=== PATIENT | female | born 1950 | race Caucasian/White ===

== ENCOUNTER → 2024-10-13 09:53 | Outpatient (REF) | payer MEDICARE, BC, SELFPAY | LOC: HWWDC 09:53 | PROVIDERS: ATTENDING PHYSICIAN Internal Medicine | DX: Z78.0 Asymptomatic menopausal state (principal) | CPT/HCPCS: 77063; 77067; 77080 ==

== ENCOUNTER → 2025-06-11 07:39 | Outpatient (REF) | payer OTHER, SELFPAY | LOC: RCS 07:39 | PROVIDERS: ATTENDING PHYSICIAN Internal Medicine; OTHER PHYSICIAN Nuclear Medicine Nuclear Cardiology; REFERRING PHYSICIAN Internal Medicine Cardiovascular Disease | DX: R00.2 Palpitations (principal); I10 Essential (primary) hypertension | CPT/HCPCS: 93306; 93975; Q9950 ==

== ENCOUNTER → 2025-08-18 07:53 | Outpatient (REF) | payer OTHER, SELFPAY | LOC: HWRCS 07:53 | PROVIDERS: ATTENDING PHYSICIAN Nuclear Medicine Nuclear Cardiology; FAMILY PHYSICIAN Internal Medicine | DX: R00.2 Palpitations (principal); I10 Essential (primary) hypertension; R07.89 Other chest pain; R06.02 Shortness of breath; Z82.49 Family history of ischemic heart disease and other diseases of the circulatory system; E78.5 Hyperlipidemia, unspecified; I51.7 Cardiomegaly | CPT/HCPCS: 78452; 93017; A9500; J2785 ==